=== PATIENT | male | born 1965 | race Caucasian/White ===

== ENCOUNTER 2017-12-15 21:45 | Emergency (ER) | payer OTHER ==
[~2017-12-15] VITALS: Ht 172.7 cm; Wt 77.0 kg
[2017-12-15] MEDS ORDERED: ACETAMINOPHEN 500MG TABLET PO ONE (22:45)
[2017-12-16 02:12] VITALS: BP 103/62
== END 2017-12-16 02:14 | disposition home or self-care (01) ==
LOC: ER 22:24
DX: S06.0X9A Concussion with loss of consciousness of unspecified duration, initial encounter (principal); Z85.79 Personal history of other malignant neoplasms of lymphoid, hematopoietic and related tissues; Y04.0XXA Assault by unarmed brawl or fight, initial encounter; Y93.89 Activity, other specified; Y92.018 Other place in single-family (private) house as the place of occurrence of the external cause
CPT/HCPCS: 70450; 71045; 72125; 99284

== ENCOUNTER 2020-05-05 22:50 | Inpatient (IN) | payer SELFPAY ==
[~2020-05-05] VITALS: Ht 167.6 cm; Wt 65.4 kg
[2020-05-05] MEDS ORDERED: SODIUM CHLORIDE 0.9% 1,000 ML IV ONE (23:37)
[2020-05-05] MEDS ORDERED: MORPHINE SULFATE 4 MG/ML CPJ (NOT FOR IM USE) IV STA (23:37)
[2020-05-05] MEDS ORDERED: ONDANSETRON HCL 4MG/2ML INJ IV STA (23:37)
[2020-05-05 23:54] LABS: CHLORIDE 102 mEq/L (98-107)
[2020-05-06] LABS: HEMATOCRIT. 37.9 % (42.0-52.0); HEMOGLOBIN. 11.7 g/dL (14.0-18.0); MEAN CORPUSCULAR HEMOGLOBIN 28.1 pg (28.0-32.0); MEAN CORPUSCULAR VOLUME 91.3 fL (80.0-94.0); MEAN PLATELET VOLUME 12.1 fl (7.4-10.4); PLATELET 355 x1000/uL (130-400); RED BLOOD CELL COUNT 4.15 mill/uL (4.7-6.1)
[2020-05-06 00:07] LABS: INR 1.3; PROTHROMBIN TIME 13.5 sec (9.6-11.0)
[2020-05-06] MEDS ORDERED: PIPERACILLIN/TAZ 3.375G PREMIX 50 ML IV SCH (00:45)
[2020-05-06 01:45] LABS: CLARITY URINE CLEAR (CLEAR); COLOR URINE YELLOW (YELLOW); KETONES URINE NEGATIVE (NEGATIVE); LEUKOCYTE ESTERASE URINE NEGATIVE (NEGATIVE); NITRITE URINE NEGATIVE (NEGATIVE); OCCULT BLOOD URINE NEGATIVE (NEGATIVE); PH URINE 5.5 (4.5-8.0); PROTEIN URINE NEGATIVE (NEGATIVE); UROBILINOGEN URINE 0.2 E.U./dL (0.2-1.0)
[2020-05-06 02:24] LABS: D-DIMER 1.58 mg/L FEU (<0.50)
[2020-05-06 02:57] LABS: NUCLEATED RED BLOOD CELLS 4 /100 WBC
[2020-05-06 02:58] LABS: PLATELET ESTIMATE NORMAL
[2020-05-06] MEDS ORDERED: IOHEXOL-300 100 ML BOTTLE ONE (03:08)
[2020-05-06] MEDS ORDERED: ACETAMINOPHEN 325MG TABLET PO PRN ×2 (03:30)
[2020-05-06] MEDS ORDERED: ONDANSETRON HCL 4MG/2ML INJ IV PRN (03:30)
[2020-05-06] MEDS ORDERED: GUAIFENESIN 200MG/10ML SUGAR FREE UDC PO PRN (03:30)
[2020-05-06] MEDS ORDERED: CLONIDINE 0.1MG TABLET PO PRN (03:30)
[2020-05-06] MEDS ORDERED: DIPHENHYDRAMINE 50MG/ML VIAL IV PRN (03:30)
[2020-05-06] MEDS ORDERED: MAGNESIUM/ALUMINUM HYDROXIDE/SIMETHICONE 30ML UDC PO PRN (03:30)
[2020-05-06] MEDS ORDERED: ZOLPIDEM TARTRATE 5MG TABLET PO PRN (03:30)
[2020-05-06] MEDS ORDERED: LEVOFLOXACIN 500MG PREMIX 100 ML IV SCH (05:00)
[2020-05-06] MEDS: SODIUM CHLORIDE 0.9% INJ 3ML FLUSH IVF SCH ×2 (14:00→20:15)
[2020-05-06 16:24] VITALS: BP 127/70
[2020-05-06] MEDS ORDERED: NILO200C2 MT (16:46)
[2020-05-06] MEDS ORDERED: NON FORMULARY PATIENT HOME MED PO SCH (18:45)
[2020-05-06] MEDS: HYDROCODONE/ACETAMINOPHEN 5/325MG TABLET PO PRN (19:12)
[2020-05-06 20:00] VITALS: BP 115/71
[2020-05-07] VITALS (7 sets, daily range): BP systolic 96–116; BP diastolic 47–69
[2020-05-07] MEDS: HYDROCODONE/ACETAMINOPHEN 5/325MG TABLET PO PRN ×3 (00:41→14:52)
[2020-05-07] MEDS: SODIUM CHLORIDE 0.9% INJ 3ML FLUSH IVF SCH ×2 (05:34→14:51)
[2020-05-07] MEDS ORDERED: LEVOFLOXACIN 500MG PREMIX 100 ML IV SCH (09:00)
== END 2020-05-07 18:55 | disposition home or self-care (01) | DRG 251 ==
LOC: ER 22:50 → 7WST 05-06 01:32 → ENRESERV 05-06 14:11 → 6WST 05-06 23:17
PROVIDERS: ADMIT Internal Medicine; ATTEND Internal Medicine
DX: R10.12 Left upper quadrant pain (principal); C95.90 Leukemia, unspecified not having achieved remission; Z20.828 Contact with and (suspected) exposure to other viral communicable diseases; R16.1 Splenomegaly, not elsewhere classified; Z79.899 Other long term (current) drug therapy
CPT/HCPCS: 36415; 71045; 71250; 74177; 80053; 81003; 82728; 83605; 83880; 84145; 85025; 85379; 85384; 86140; 87635; 93005; 99291; J1956; J2270; J2405; J2543; J7030; Q9967